=== PATIENT | male | born 1955 | race Caucasian/White ===

== ENCOUNTER 2024-12-13 08:41 | Emergency (ER) | payer MEDICARE, OTHER ==
[~2024-12-13] VITALS: Ht 175.3 cm; Wt 74.8 kg
[2024-12-13 08:57] VITALS: O2SAT 99
[2024-12-13] MEDS ORDERED: RABIES VACCINE (PCEC)/PF 2.5 UNIT ML IM ONE (09:37)
[2024-12-13] MEDS: RABIES VACCINE (PCEC)/PF 2.5 UNIT ML IM ONE (09:37)
== END 2024-12-13 09:52 | disposition home or self-care (01) ==
LOC: ER 08:51
DX: S71.1 Open wound of thigh (principal); Z23 Encounter for immunization; Z29.14 Encounter for prophylactic rabies immune globulin; W54.0XXD Bitten by dog, subsequent encounter
CPT/HCPCS: A4606; A4663

== ENCOUNTER 2024-12-20 10:39 | Emergency (ER) | payer MEDICARE ==
[~2024-12-20] VITALS: Ht 175.3 cm; Wt 81.6 kg
[2024-12-20] MEDS ORDERED: RABIES VACCINE (PCEC)/PF 2.5 UNIT ML IM ONE (12:05)
[2024-12-20] MEDS: RABIES VACCINE (PCEC)/PF 2.5 UNIT ML IM ONE (12:15)
[2024-12-20 12:16] VITALS: BP 135/71; O2SAT 100
== END 2024-12-20 12:17 | disposition home or self-care (01) ==
LOC: ER 11:39
DX: S81.05 Open bite of knee (principal); Z59.00 Homelessness unspecified; W54.0XXA Bitten by dog, initial encounter; Y93.89 Activity, other specified; Y92.89 Other specified places as the place of occurrence of the external cause; Y99.8 Other external cause status
CPT/HCPCS: A4606; A4663